=== PATIENT | female | born 1980 ===

== ENCOUNTER 2022-01-24 15:07 | Emergency (ER) | payer OTHER | END 2022-01-24 17:30 | disposition home or self-care (01) | LOC: ER 15:07 | DX: O98.811 Other maternal infectious and parasitic diseases complicating pregnancy, first trimester (principal); L02.415 Cutaneous abscess of right lower limb; Z3A.12 12 weeks gestation of pregnancy ==

== ENCOUNTER → 2022-01-25 | Outpatient (CLI) | payer OTHER ==
[~2022-01-25] MED LIST: CLIN300 PO
[2022-01-28 04:09] LABS: CHLAMYDIA TRACHOMATIS, NAA Negative (Negative)
== END | disposition home or self-care (01) ==
LOC: LAB 19:10 → LAB SHORT 19:10
PROVIDERS: Family Medicine
DX: Z34.92 Encounter for supervision of normal pregnancy, unspecified, second trimester (principal)
CPT/HCPCS: 87491; 87591

== ENCOUNTER 2022-02-12 06:25 | Emergency (ER) | payer OTHER ==
[~2022-02-12] VITALS: Ht 162.6 cm; Wt 99.8 kg
[~2022-02-12 06:25] MED LIST changes: +CEPH500 PO; +IBUP600 PO; +METO10 PO; +PRENATAL TABLE1 EAC2; +SULTRIDS PO
[2022-02-12 07:15] LABS: Albumin, Blood 2.8 g/dL (3.4-5.0); Albumin/Globulin Ratio 0.7 (0.8-1.8); BASOPHILS ABSOLUTE AUTO 0.02 K/mm3 (0.00-0.23); BASOPHILS PERCENT AUTO 0 % (0-2); Bilirubin, Total 0.3 mg/dL (0.1-1.0); Bun/Creatinine Ratio 10.1 (12.0-20.0); Calcium, Blood 8.4 mg/dL (8.5-10.1); Creatinine, Blood 0.5 mg/dL (0.40-1.00); EOSINOPHILS ABSOLUTE AUTO 0.21 K/mm3 (0.00-0.68); EOSINOPHILS PERCENT AUTO 3 % (0-6); Globulin, Blood 4.1 g/dL (2.2-4.0); Hematocrit 37.3 % (33.0-51.0); Hemoglobin 12.9 g/dL (11.5-16.0); IMMATURE GRAN ABSOLUTE AUTO 0.02 K/mm3 (0.00-0.10); IMMATURE GRAN PERCENT AUTO 0 % (0-1); LYMPHOCYTES ABSOLUTE AUTO 2.13 K/mm3 (0.84-5.20); LYMPHOCYTES PERCENT AUTO 26 % (21-46); MONOCYTES ABSOLUTE AUTO 0.44 K/mm3 (0.16-1.47); MONOCYTES PERCENT AUTO 5 % (4-13); Mean Corpuscular HGB 30.7 pg (26.0-34.0); Mean Corpuscular HGB Conc 34.6 g/dL (31.5-36.5); Mean Corpuscular Volume 89 fL (80-100); Mean Platelet Volume 10.5 fL (9.1-12.4); NEUTROPHILS ABSOLUTE AUTO 5.51 K/mm3 (1.96-9.15); NEUTROPHILS PERCENT AUTO 66 % (41-73); Platelet Count 298 K/mm3 (150-400); Potassium, Blood 3.6 mmol/L (3.5-5.5); RDW Coefficient Variation 13.1 % (11.7-14.2); RDW Standard Deviation 42.8 fL (35.1-46.3); Total Protein, Blood 6.9 g/dL (6.4-8.2); White Blood Cell Count 8.33 K/mm3 (4.00-11.30)
[2022-02-12 07:59] LABS: Source, Urine Clean Catch
[2022-02-12 08:06] LABS: Appearance, Urine Clear (Clear); Bilirubin, Urine Neg (Neg); Blood, Urine Neg (Neg); Color, Urine Yellow (P-Yellow); Glucose Qualitative, Urine Neg (Neg); Ketones, Urine 2+ (Neg); Leukocyte Esterase, Urine Neg (Neg); Nitrite, Urine Neg (Neg); Protein, Urine Neg (Neg); Urobilinogen, Urine NORM (Normal)
[2022-02-12] MEDS ORDERED: [UNRECOGNIZED DRUG - OTHER] PO (09:40)
== END 2022-02-12 09:58 | disposition home or self-care (01) ==
LOC: ER 06:25
PROVIDERS: Emergency Medicine
DX: O99.891 Other specified diseases and conditions complicating pregnancy (principal); R11.2 Nausea with vomiting, unspecified; E86.0 Dehydration; R10.9 Unspecified abdominal pain; Z3A.20 20 weeks gestation of pregnancy; Z88.0 Allergy status to penicillin
CPT/HCPCS: 36415; 76816; 80053; 81003; 85025; J2405; J7030

== ENCOUNTER → 2022-04-12 | Outpatient (CLI) | payer OTHER ==
[~2022-04-12] MED LIST changes: +[UNRECOGNIZED DRUG - OTHER] PO
[2022-04-12 16:41] LABS: BASOPHILS ABSOLUTE AUTO 0.01 K/mm3 (0.00-0.23); BASOPHILS PERCENT AUTO 0 % (0-2); EOSINOPHILS PERCENT AUTO 2 % (0-6); Hematocrit 35.4 % (33.0-51.0); Hemoglobin 11.7 g/dL (11.5-16.0); IMMATURE GRAN ABSOLUTE AUTO 0.02 K/mm3 (0.00-0.10); IMMATURE GRAN PERCENT AUTO 0 % (0-1); LYMPHOCYTES ABSOLUTE AUTO 2.03 K/mm3 (0.84-5.20); LYMPHOCYTES PERCENT AUTO 21 % (21-46); MONOCYTES ABSOLUTE AUTO 0.59 K/mm3 (0.16-1.47); MONOCYTES PERCENT AUTO 6 % (4-13); Mean Corpuscular HGB 29.5 pg (26.0-34.0); Mean Corpuscular HGB Conc 33.1 g/dL (31.5-36.5); Mean Corpuscular Volume 89 fL (80-100); Mean Platelet Volume 10.4 fL (9.1-12.4); NEUTROPHILS ABSOLUTE AUTO 6.73 K/mm3 (1.96-9.15); NEUTROPHILS PERCENT AUTO 70 % (41-73); Platelet Count 382 K/mm3 (150-400); RDW Coefficient Variation 12.5 % (11.7-14.2); RDW Standard Deviation 41.2 fL (35.1-46.3); Red Blood Cell Count 3.96 M/mm3 (3.80-5.20); White Blood Cell Count 9.58 K/mm3 (4.00-11.30)
== END | disposition home or self-care (01) ==
LOC: LAB SHORT 13:41 → LAB 13:41
PROVIDERS: Family Medicine
DX: Z34.92 Encounter for supervision of normal pregnancy, unspecified, second trimester (principal)
CPT/HCPCS: 82950; 85025

== ENCOUNTER → 2022-06-04 | Outpatient (CLI) | payer OTHER | END | disposition home or self-care (01) | LOC: LAB SHORT 15:13 | DX: Z34.93 Encounter for supervision of normal pregnancy, unspecified, third trimester (principal) | CPT/HCPCS: 87081; 87150 ==

== ENCOUNTER 2022-06-24 14:16 | Inpatient (IN) | payer OTHER ==
[~2022-06-24] VITALS: Ht 162.6 cm; Wt 109.0 kg
[2022-06-24] MEDS ORDERED: OMEP20ER PO (15:28)
[2022-06-24] MEDS ORDERED: HYDHCL25 PO (15:28)
[2022-06-24 15:32] LABS: BASOPHILS ABSOLUTE AUTO 0.01 K/mm3 (0.00-0.23); BASOPHILS PERCENT AUTO 0 % (0-2); EOSINOPHILS ABSOLUTE AUTO 0.15 K/mm3 (0.00-0.68); EOSINOPHILS PERCENT AUTO 2 % (0-6); Hematocrit 32.4 % (33.0-51.0); Hemoglobin 10.9 g/dL (11.5-16.0); IMMATURE GRAN ABSOLUTE AUTO 0.04 K/mm3 (0.00-0.10); IMMATURE GRAN PERCENT AUTO 0 % (0-1); LYMPHOCYTES PERCENT AUTO 21 % (21-46); MONOCYTES ABSOLUTE AUTO 0.51 K/mm3 (0.16-1.47); MONOCYTES PERCENT AUTO 6 % (4-13); Mean Corpuscular HGB 27.5 pg (26.0-34.0); Mean Corpuscular HGB Conc 33.6 g/dL (31.5-36.5); Mean Corpuscular Volume 82 fL (80-100); Mean Platelet Volume 10.5 fL (9.1-12.4); NEUTROPHILS ABSOLUTE AUTO 6.59 K/mm3 (1.96-9.15); NEUTROPHILS PERCENT AUTO 72 % (41-73); Platelet Count 350 K/mm3 (150-400); RDW Standard Deviation 41.3 fL (35.1-46.3); Red Blood Cell Count 3.97 M/mm3 (3.80-5.20)
--- NOTE | 2022-06-24 17:19 | NUR ---
Spiritual Care: Pt. Request Attempted Pt. was being attended to by medical staff. The clinical business analyst will check on Pt. in the AM.
--- NOTE | 2022-06-24 18:55 | NUR ---
PT BONDING DOING WELL, HAVING GOOD PAIN CONTROL BREAST FEEDING NB WELL, REPT TO PM SHIFT
[2022-06-25 05:43] LABS: Hematocrit 28.3 % (33.0-51.0); Hemoglobin 9.6 g/dL (11.5-16.0); Mean Corpuscular HGB 27.8 pg (26.0-34.0); Mean Corpuscular HGB Conc 33.9 g/dL (31.5-36.5); Mean Corpuscular Volume 82 fL (80-100); Mean Platelet Volume 10.3 fL (9.1-12.4); Platelet Count 268 K/mm3 (150-400); RDW Coefficient Variation 13.9 % (11.7-14.2); RDW Standard Deviation 41.3 fL (35.1-46.3); Red Blood Cell Count 3.45 M/mm3 (3.80-5.20); White Blood Cell Count 10.62 K/mm3 (4.00-11.30)
--- NOTE | 2022-06-25 09:49 | NUR ---
"Spiritual Care | Pt. Request Pt. is awake in room and welcomes my visit. Pt. delivered a beautiful boy overnight and requested that the child recieve a blessing. Facilitated a short life review, and blessed the child with prayer and affirmation. Pt. verbalized gratitude for the Spiritual Care visit."
--- NOTE | 2022-06-25 13:46 | NUR ---
REPT TO Gino TOPETE LPN
[2022-06-26] MEDS ORDERED: IBUP800 PO (11:18)
== END 2022-06-26 11:40 | disposition home or self-care (01) | DRG 807 ==
LOC: OBS 14:16 → BC 14:31
PROVIDERS: ADMIT Family Medicine
PROC: 10E0XZZ Delivery of Products of Conception, External Approach (ICD-10-PCS; principal; 2022-06-24)
PROC: 10907ZC Drainage of Amniotic Fluid, Therapeutic from Products of Conception, Via Natural or Artificial Opening (ICD-10-PCS; 2022-06-24)
PROC: 00HU33Z Insertion of Infusion Device into Spinal Canal, Percutaneous Approach (ICD-10-PCS; 2022-06-24)
PROC: 3E0R3NZ Introduction of Analgesics, Hypnotics, Sedatives into Spinal Canal, Percutaneous Approach (ICD-10-PCS; 2022-06-24)
DX: O40.3XX0 Polyhydramnios, third trimester, not applicable or unspecified (principal); Z37.0 Single live birth; Z3A.39 39 weeks gestation of pregnancy; Z86.14 Personal history of Methicillin resistant Staphylococcus aureus infection; O69.81X0 Labor and delivery complicated by cord around neck, without compression, not applicable or unspecified; Z88.0 Allergy status to penicillin; Z67.30 Type AB blood, Rh positive; Z91.018 Allergy to other foods; Z79.899 Other long term (current) drug therapy
CPT/HCPCS: 36415; 51702; 85025; 85027; 86850; 86900; 86901; A9270; J1885; J7120

== ENCOUNTER 2022-11-02 20:42 | Emergency (ER) | payer OTHER ==
[~2022-11-02] VITALS: Ht 162.6 cm; Wt 104.3 kg
[~2022-11-02 20:42] MED LIST changes: +HYDHCL25 PO; +IBUP800 PO; +OMEP20ER PO
[2022-11-02 21:05] VITALS: BP 130/84
[2022-11-02] MEDS ORDERED: CYCL10 PO (21:57)
== END 2022-11-02 22:10 | disposition home or self-care (01) ==
LOC: ER 20:42
DX: S93.401A Sprain of unspecified ligament of right ankle, initial encounter (principal); S40.011A Contusion of right shoulder, initial encounter; S39.012A Strain of muscle, fascia and tendon of lower back, initial encounter; K21.9 Gastro-esophageal reflux disease without esophagitis; W01.0XXA Fall on same level from slipping, tripping and stumbling without subsequent striking against object, initial encounter; Z88.0 Allergy status to penicillin; Z91.018 Allergy to other foods; Z79.899 Other long term (current) drug therapy
CPT/HCPCS: 73030; 73610; A9270; J1885

== ENCOUNTER 2023-02-10 13:15 | Day surgery (SDC) | payer OTHER ==
[2023-02-10] VITALS (10 sets, daily range): BP systolic 103–129; BP diastolic 66–92
[~2023-02-10] VITALS: Ht 162.6 cm; Wt 116.2 kg
[~2023-02-10 13:15] MED LIST changes: +CYCL10 PO; +SERT50 PO
[2023-02-10 13:40] LABS: Source, Urine Clean Catch
[2023-02-10 13:45] LABS: Source, Urine Clean Catch
--- NOTE | 2023-02-10 13:45 | NUR ---
Ambulatory in Day Surgery History, Chart, Medications and Allergies reviewed before start of procedure.Lungs clear T/O to Auscultation. Patient confirms NPO status and agrees with scheduled surgery. Patient reports completing Chlorhexadine shower X2 prior to admission to hospital.Surgical site prepped with 2% Chlorhexidine cloth wipe. Patient States Post-Procedure ride home has been arranged.UA sent per verbal order-Dr. Rosas.
[2023-02-10 13:49] LABS: Appearance, Urine Clear (Clear); Bilirubin, Urine Neg (Neg); Blood, Urine Neg (Neg); Color, Urine Yellow (P-Yellow); Glucose Qualitative, Urine Neg (Neg); Ketones, Urine Neg (Neg); Leukocyte Esterase, Urine Neg (Neg); Nitrite, Urine Neg (Neg); Protein, Urine Neg (Neg); Specific Gravity, Urine 1.015 (1.003-1.022); Urobilinogen, Urine NORM (Normal)
[2023-02-10 16:15] LABS: Appearance, Urine Clear (Clear); Bilirubin, Urine Neg (Neg); Blood, Urine Neg (Neg); Color, Urine Yellow (P-Yellow); Glucose Qualitative, Urine Neg (Neg); Ketones, Urine Neg (Neg); Leukocyte Esterase, Urine Neg (Neg); Nitrite, Urine Neg (Neg); Protein, Urine Neg (Neg); Specific Gravity, Urine 1.015 (1.003-1.022); Urobilinogen, Urine NORM (Normal)
--- NOTE | 2023-02-10 16:39 | NUR ---
REPORT RECEIVED FROM AZUCENA COLLINS RN. VSS. PT ABLE TO REPOSITION SELF IN BED. PT REQUESTING PO FOOD AND FLUIDS AND TOLERATING THEM WELL. PT HAS 2 INCISION SITES TO ABDOMEN THAT ARE C/D/I WITHOUT DRAINAGE, REDNESS, OR SWELLING. PT DENIES NAUSEA. PT REPORTS 3/10 ACHING PAIN TO INCISION SITE NEAR UMBILICAL.
--- NOTE | 2023-02-10 17:17 | NUR ---
Patient up to Ambulate independently. Gait steady. VSS AND CONSISTENT WITH PT BASELINE. Discharge instructions reviewed with patient. Patient verbalizes understanding. Copy given to patient to take home. Dressing to procedure site clean, dry, intact with no visible drainage, swelling, erythema or bruising noted. Patient States Post-Procedure ride home has been arranged. Discharged via wheelchair to private car for ride home. PT BELONGINGS RETURNED TO PT.
== END 2023-02-10 17:21 | disposition home or self-care (01) ==
LOC: ORSCMMR 13:15 → ORD 14:30 → ORSCMMR 14:45 → ORD 15:00 → ORSCMMR 17:21
PROVIDERS: Obstetrics & Gynecology
PROC: 0UT7FZZ Resection of Bilateral Fallopian Tubes, Via Natural or Artificial Opening With Percutaneous Endoscopic Assistance (ICD-10-PCS; principal; 2023-02-10 14:45)
DX: Z30.2 Encounter for sterilization (principal); E66.01 Morbid (severe) obesity due to excess calories; Z68.41 Body mass index [BMI] 40.0-44.9, adult; K21.9 Gastro-esophageal reflux disease without esophagitis; Z79.899 Other long term (current) drug therapy
CPT/HCPCS: 81003; 88302; A9270; J0690; J1100; J1170; J1885; J2250; J2371; J2405; J2704; J2765; J3010; J7120

== ENCOUNTER 2023-11-17 13:27 | Emergency (ER) | payer OTHER ==
[~2023-11-17] VITALS: Ht 162.6 cm; Wt 113.4 kg
[2023-11-17 13:30] VITALS: BP 131/107
[2023-11-17] MEDS ORDERED: DiphenhydrAMINE HCl 50 MG/ML 1ML Vial IV ONE (13:35)
[2023-11-17] MEDS ORDERED: Ketorolac Tromethamine 15mg Vial IV ONE (13:35)
[2023-11-17] MEDS ORDERED: Prochlorperazine Edisylate 10 mg Vial IV ONE (13:35)
[2023-11-17] MEDS ORDERED: NS 1,000 ML IV SCH (13:35)
[2023-11-17] MEDS ORDERED: METO10 PO (15:11)
== END 2023-11-17 15:22 | disposition home or self-care (01) ==
LOC: ER 13:27
DX: R51.9 Headache, unspecified (principal); K21.9 Gastro-esophageal reflux disease without esophagitis; Z79.899 Other long term (current) drug therapy; Z88.0 Allergy status to penicillin; Z91.018 Allergy to other foods
CPT/HCPCS: 70450; 96361; 96374; 96375; 99283-25; J0780; J1200; J1885; J7030

== ENCOUNTER → 2024-10-23 | Outpatient (CLI) | payer OTHER ==
[2024-10-23 15:44] LABS: Thyroxine (T4) 8.4 ug/dL (4.8-13.9)
[2024-10-23 15:46] LABS: Thyroid Stimulating Hormone 1.33 uIU/mL (0.360-4.800); Triiodothyronine, Free 2.49 pg/mL (2.18-3.98)
[2024-10-24 14:55] LABS: THYROID PEROXIDASE (TPO) AB 1.7 IU/mL (0.0-9.0)
== END ==
LOC: LAB SHORT 13:11 → LAB 13:11
PROVIDERS: Registered Nurse Community Health
DX: N92.0 Excessive and frequent menstruation with regular cycle (principal)
CPT/HCPCS: 84436; 84443; 84481; 86376

== ENCOUNTER 2025-01-20 19:04 | Emergency (ER) | payer OTHER ==
[~2025-01-20] VITALS: Ht 162.6 cm; Wt 92.1 kg
[2025-01-20 19:13] VITALS: BP 129/94
[2025-01-20] MEDS ORDERED: Ketorolac Tromethamine 15mg Vial IM ONE (20:05)
[2025-01-20] MEDS ORDERED: Adipex-P37.5 M1 PO (20:09)
[2025-01-20] MEDS ORDERED: Lidocaine 4% 1 Patch TOP ONE (20:50)
[2025-01-20] MEDS ORDERED: TIZA4 PO (21:24)
[2025-01-20] MEDS ORDERED: LIDO700A20 TOP (21:24)
== END 2025-01-20 21:30 | disposition home or self-care (01) ==
LOC: ER 19:04
DX: S60.222A Contusion of left hand, initial encounter (principal); M54.9 Dorsalgia, unspecified; W22.8XXA Striking against or struck by other objects, initial encounter; Z88.0 Allergy status to penicillin; Z88.5 Allergy status to narcotic agent; Z91.018 Allergy to other foods; Z79.899 Other long term (current) drug therapy
CPT/HCPCS: 73110; 73130; 96372; 99283-25; A9270; J1885